=== PATIENT | male | born 1990 | race African-American/Black ===

== ENCOUNTER 2017-01-04 07:03 | Emergency (ER) | payer SELFPAY ==
[~2017-01-04] VITALS: Ht 182.9 cm; Wt 90.7 kg
[~2017-01-04 07:03] MED LIST: Albuterol ud Inhalation ONE; PredniSONE 20mg tab ONE
[2017-01-04] MEDS ORDERED: Albuterol ud Inhalation ONE (07:04)
[2017-01-04] MEDS: Ipratropium 0.02% Inh Soln 2.5ml UD HHN SCH ×3 (07:23→07:30)
[2017-01-04] MEDS: Albuterol ud Inhalation HHN SCH ×3 (07:23→07:30)
[2017-01-04] MEDS ORDERED: PredniSONE 20mg tab ORAL ONE (07:30)
--- NOTE | 2017-01-04 07:35 | Emergency Room Report ---
History of Present Illness General Chief Complaint: Asthma Source: Patient Present Illness HPI 26YOM with asthma walk-in with 2-3 days progressive SOB, chest tightness. Was recently DCed from outside hospital ED with Rx but unable to fill Rx d/t insurance issues. Denies previous intubation/BIPAP/admission. Uses albuterol and Dulera for asthma meds. Denies other meds, fever/chills, recent URI meds. Allergies: Coded Allergies: No Known Allergies (Unverified , 01/04/17) Patient History Past Medical History: asthma Past Surgical History: none Pertinent Family History: none Social History: Denies: alcohol use, drug use, smoking Immunizations: UTD Reviewed Nursing Documentation: PMH: Agreed, PSxH: Agreed Nursing Documentation-PMH Past Medical History: No History, Except For Hx Asthma: Yes Review of Systems All Other Systems: negative except mentioned in HPI Physical Exam Vital Signs Date Time Temp Pulse Resp B/P Pulse Ox O2 Delivery O2 Flow Rate FiO2 01/04/17 07:04 89 21 Nasal Cannula 2.0 01/04/17 07:05 97.5 88 Sp02 EP Interpretation: reviewed, abnormal General Appearance: normal inspection, well appearing, alert, GCS 15, non-toxic , moderate distress Head: normocephalic, atraumatic Eyes: bilateral eye EOMI, bilateral eye PERRL ENT: normal ENT inspection, hearing grossly normal, normal voice Neck: normal inspection, full range of motion, supple, no bony tend Respiratory: normal inspection, decreased breath sounds, accessory muscle use, wheezing Cardiovascular #1: regular rate, rhythm, no edema, tachycardia Gastrointestinal: normal inspection, normal bowel sounds, non tender, soft, no guarding, no hernia Genitourinary: no CVA tenderness Musculoskeletal: normal inspection, back normal, normal range of motion, Lydia' s Sign negative Neurologic: normal inspection, alert, oriented x3, responsive, tune up mechanic III-XII nml as tested, motor strength/tone normal, speech normal Psychiatric: normal inspection, judgement/insight normal, mood/affect normal Skin: normal inspection, normal color, no rash Medical Decision Making Diagnostic Impression: Primary Impression: Asthma Qualified Codes: J45.21 - Mild intermittent asthma with (acute) exacerbation ER Course 26YOM with mild asthma exacerbation VS initially concerning for hypoxia, tachycardia Access muscle use Improved with duonebs X3 and prednsione Feels much better Lungs CTAB on serial exam Patient states "medical suspended", cant fill Rx for meds Was given PPI to take with him on DC from ER Also Rx prednisone, dulera PMD followup EKG Diagnostic Results Rate: normal Rhythm: NSR ST Segments: no acute changes Rhythm Strip Diag. Results EP Interpretation: yes Rate: 83 Rhythm: NSR, no PVC's, no ectopy Chest X-Ray Diagnostic Results EP Interpretation: Yes Findings: no consolidation, no effusion, no pneumothorax, no acute cardiopulmonary disease Number of Views: 1 Last Vital Signs Date Time Temp Pulse Resp B/P Pulse Ox O2 Delivery O2 Flow Rate FiO2 01/04/17 07:24 89 21 Nasal Cannula 2.0 01/04/17 07:21 97 01/04/17 07:05 97.5 Status: improved Disposition: HOME, SELF-CARE Scripts Prednisone (Prednisone) 20 Mg Tablet 40 MG PO DAILY for 3 Days, #3 TAB Prov: JOANIE ROWLEY M.D. 01/04/17 Mometasone/Formoterol (DULERA 200 MCG/5 MCG INHALER) 13 Gm Hfa.aer.ad 13 GM IH BID for 30 Days, #1 UNIT 1 Refill Prov: JOANIE ROWLEY M.D. 01/04/17 Albuterol Sulfate (VENTOLIN HFA) 18 Gm Hfa.aer.ad 2 PUFFS INH EVERY 6 HOURS, #18 GM 1 Refill Prov: JOANIE ROWLEY M.D. 01/04/17 JOANIE ROWLEY M.D. Jan 04, 2017 07:35
[2017-01-04 07:37] LABS: EOSINOPHILS % (AUTO) 0.2 % (0.0-3.0); LYMPHOCYTES % (AUTO) 20.9 % (20.0-45.0); MEAN CORPUSCULAR HEMOGLOBIN 30.3 PG (27.0-31.0); MEAN CORPUSCULAR VOLUME 89 FL (80-99); MEAN PLATELET VOLUME 6.2 FL (6.5-10.1); MONOCYTES % (AUTO) 2.2 % (1.0-10.0); NEUTROPHILS % (AUTO) 75.8 % (45.0-75.0); PLATELET COUNT 331 K/UL (150-450); WHITE BLOOD COUNT 6.1 K/UL (4.8-10.8)
[2017-01-04 07:44] LABS: ALANINE AMINOTRANSFERASE 35 U/L (3-41); ALBUMIN/GLOBULIN RATIO 1.4 (1.0-2.7); ANION GAP 14 (5-15); ASPARTATE AMINO TRANSFERASE 45 U/L (5-40); CALCIUM 9.8 mg/dL (8.6-10.2); CARBON DIOXIDE 28 mEQ/L (20-30); CHLORIDE 100 mEQ/L (98-107); CREATININE 1.2 mg/dL (0.7-1.2); GLOMERULAR FILTRATION RATE > 60 mL/min (>60); HEMOLYSIS 3; POTASSIUM 4.9 mEQ/L (3.4-4.9); SODIUM 142 mEQ/L (135-145); TOTAL PROTEIN 8.7 g/dL (6.6-8.7); TROPONIN I < 0.30 ng/mL (<=0.30)
[2017-01-04 07:54] LABS: CKMB 11.2 ng/mL (< 6.7)
[2017-01-04 08:18] VITALS: BP 130/55
[2017-01-04] MEDS ORDERED: PREDNISONE20 M1 PO (08:35)
[2017-01-04] MEDS ORDERED: VENTOLIN HFA18 GM INH (08:35)
[2017-01-04] MEDS ORDERED: DULERA 200 MCG/13 GM IH (08:35)
[2017-01-04 08:45] VITALS: BP_SYST 130; BP_SYST 136; BP_DIAS 55; BP_DIAS 81
[2017-01-04] MEDS ORDERED: Albuterol 90mcg Inhaler 8gm INH PRN (08:45)
--- NOTE | 2017-01-04 11:00 | Diagnostic Imaging Report ---
Indication: SOB Technique: One view of the chest Comparison: none Findings: Lungs and pleural spaces are clear. Heart size is normal. Impression: No acute process
--- NOTE | 2017-01-05 14:23 | Cardiology Report ---
APPROVED REPORT EKG Measurement Heart [id number] Normal sinus rhythm with sinus arrhythmia Rightward axis Borderline ECG
== END 2017-01-04 08:45 | disposition home or self-care (01) ==
LOC: EMR 07:34
DX: J45.901 Unspecified asthma with (acute) exacerbation (principal)
CPT/HCPCS: 36415; 71010; 80053; 82550; 82553; 84484; 85025; 93005; 94640; 94664; 99284

== ENCOUNTER 2017-01-12 09:36 | Emergency (ER) | payer SELFPAY ==
[~2017-01-12] VITALS: Ht 180.3 cm; Wt 90.7 kg
[~2017-01-12 09:36] MED LIST changes: -Albuterol ud Inhalation ONE; +DULERA 200 MCG/13 GM IH; +PREDNISONE20 M1 PO; -PredniSONE 20mg tab ONE; +VENTOLIN HFA18 GM INH
--- NOTE | 2017-01-12 09:54 | Emergency Room Report ---
History of Present Illness General Chief Complaint: Asthma Source: Patient Present Illness HPI Patient presents with complaints of asthma exacerbation Patient provides significant input That he has been unable to fill medications He's having problems with his insurance Symptoms have worsened over the past several days after his presentation to the ER here Otherwise denies any fevers denies any chest pain Denies any back or flank pain He does feel short of breath with his asthma flare Allergies: Coded Allergies: No Known Allergies (Unverified , 01/04/17) Patient History Past Medical History: see triage record Pertinent Family History: none Reviewed Nursing Documentation: PMH: Agreed, PSxH: Agreed Nursing Documentation-PMH Past Medical History: No History, Except For Hx Asthma: Yes Review of Systems All Other Systems: negative except mentioned in HPI Physical Exam Vital Signs Date Time Temp Pulse Resp B/P Pulse Ox O2 Delivery O2 Flow Rate FiO2 01/12/17 09:47 99.1 112 20 124/71 92 Room Air Sp02 EP Interpretation: reviewed, normal General Appearance: well appearing, no apparent distress Head: normocephalic, atraumatic Eyes: bilateral eye EOMI, bilateral eye PERRL ENT: hearing grossly normal, normal pharynx, TMs + canals normal, uvula midline Neck: full range of motion, supple, no meningismus, no bony tend Respiratory: no rhonchi, no respiratory distress, no retraction, no accessory muscle use, wheezing - Bilaterally Cardiovascular #1: normal peripheral pulses, regular rate, rhythm, no edema, no gallop, no JVD, no murmur Gastrointestinal: normal bowel sounds, non tender, soft, no mass, no organomegaly, non-distended, no guarding, no hernia, no pulsatile mass, no rebound Musculoskeletal: normal inspection Neurologic: oriented x3, responsive, lead level designer III-XII nml as tested, motor strength/ tone normal, sensory intact Psychiatric: mood/affect normal Skin: normal color, no rash, warm/dry, palpation normal Lymphatic: normal inspection, no adenopathy Medical Decision Making Diagnostic Impression: Primary Impression: Asthma attack ER Course Patient has significantly better with acute intervention Multiple differentials including pneumonia, and reactive airway disease are considered Patient did have recent imaging study therefore that was not obtained today At the time of disposition patient has increased concerns regarding medication prescription ability to be filled Unfortunately we do not have albuterol inhalers to go home with at this facility Patient has had multiple days and ability to followup appropriately with primary physician in clinic he was also provided with referrals Unfortunately the patient was not happy regarding this, and I did try to explain that we have limited resources Last Vital Signs Date Time Temp Pulse Resp B/P Pulse Ox O2 Delivery O2 Flow Rate FiO2 01/12/17 09:47 99.1 112 20 124/71 92 Room Air Status: improved Disposition: HOME, SELF-CARE Condition: Improved Scripts Mometasone/Formoterol (DULERA 200 MCG/5 MCG INHALER) 13 Gm Hfa.aer.ad 13 GM IH BID for 30 Days, MCG Prov: ALYSON PUENTES D.O. 01/12/17 Albuterol Sulfate* (ALBUTEROL SULFATE MDI*) 8.5 Gm Hfa.aer.ad 2 PUFF INH Q6H, #1 EA 0 Refills Prov: ALYSON PUENTES D.O. 01/12/17 Additional Instructions: Patient is provided with the discharge instructions notified to follow up with primary doctor in the next 2-3 days otherwise return to the er with any worsening symptoms. Please note that this report is being documented using [employer] technology. This can lead to erroneous entry secondary to incorrect interpretation by the dictating instrument. ALYOSN PUENTES D.O. January 12, 2017 09:53
[2017-01-12] MEDS ORDERED: Ipratropium 0.02% Inh Soln 2.5ml UD HHN ONE (10:00)
[2017-01-12] MEDS ORDERED: Albuterol ud Inhalation HHN ONE (10:00)
[2017-01-12] MEDS ORDERED: PredniSONE 20mg tab ORAL ONE (10:00)
[2017-01-12] MEDS ORDERED: ALBUTEROL SULF8.5 GM INH (10:53)
[2017-01-12] MEDS ORDERED: DULERA 200 MCG/13 GM IH (10:53)
[2017-01-12 10:58] VITALS: BP 136/78
== END 2017-01-12 11:02 | disposition home or self-care (01) ==
LOC: EMR 10:03
DX: J45.901 Unspecified asthma with (acute) exacerbation (principal)
CPT/HCPCS: 94640; 94664; 99284

== ENCOUNTER 2017-02-02 04:15 | Emergency (ER) | payer SELFPAY ==
[~2017-02-02] VITALS: Ht 182.9 cm; Wt 90.7 kg
[~2017-02-02 04:15] MED LIST changes: +ALBUTEROL SULF8.5 GM INH
[2017-02-02 04:25] VITALS: BP 131/71
[2017-02-02] MEDS ORDERED: Ipratropium 0.02% Inh Soln 2.5ml UD HHN ONE (04:30)
[2017-02-02] MEDS ORDERED: Albuterol ud Inhalation HHN ONE (04:30)
--- NOTE | 2017-02-02 04:32 | Emergency Room Report ---
History of Present Illness General Chief Complaint: Asthma Source: Patient Present Illness HPI The patient presents with one and a half days of wheezing and cough. He has a history of asthma. He's been out of his inhaler. There's a difficulty he is having with finding his Medi-Benji to be valid. Denies any fevers, productive phlegm, vomiting, diarrhea. The patient had a sore throat at the beginning of this but is now doing better. He denies any chest pain. This is not his worst attack. The patient's been treated with prednisone in the past. Denies smoking to me but the nurses recorded he told her that he does smoke. Allergies: Coded Allergies: No Known Allergies (Unverified , 01/04/17) Patient History Past Medical History: see triage record Social History: Reports: smoking Social History Narrative Works and also is a student. Reviewed Nursing Documentation: PMH: Agreed, PSxH: Agreed Nursing Documentation-PMH Hx Asthma: Yes Review of Systems All Other Systems: negative except mentioned in HPI Physical Exam Vital Signs Date Time Temp Pulse Resp B/P Pulse Ox O2 Delivery O2 Flow Rate FiO2 02/02/17 04:18 99.1 86 16 120/68 97 Room Air Sp02 EP Interpretation: reviewed, normal General Appearance: well appearing, no apparent distress, GCS 15 Head: normocephalic Eyes: bilateral eye PERRL, bilateral eye normal inspection ENT: normal pharynx, moist mucus membranes Neck: supple Respiratory: wheezing, expiration Cardiovascular #1: regular rate, rhythm Cardiovascular #2: 2+ radial (R) Gastrointestinal: normal inspection, normal bowel sounds, non tender, no mass, non-distended Musculoskeletal: back normal, gait/station normal, normal range of motion Neurologic: alert, oriented x3 Skin: normal inspection, warm/dry Medical Decision Making Diagnostic Impression: Primary Impression: Asthma attack ER Course Patient presents with exacerbation of asthma. There is no fever or productive phlegm. He will be treated with albuterol and Atrovent. In addition he'll be given Decadron. Differential includes asthma, bronchitis, pneumonia. The latter is excluded by physical exam and symptom. Lungs are clear. Patient will get information about fixing his Medi-Benji. The patient is stable for outpatient observation and treatment. Last Vital Signs Date Time Temp Pulse Resp B/P Pulse Ox O2 Delivery O2 Flow Rate FiO2 02/02/17 05:50 98.4 80 16 128/72 100 Room Air 02/02/17 05:50 21 Status: improved Disposition: HOME, SELF-CARE Condition: Improved Scripts Albuterol Sulfate* (ALBUTEROL SULFATE MDI*) 8.5 Gm Hfa.aer.ad 2 PUFF INH Q6H, #1 EA 0 Refills Prov: Manohar Warren M.D. 02/02/17 Beclomethasone Dipropionate (Qvar) 8.7 Gm Aer.w.adap 2 PUFFS IH BID, #1 GM Prov: Manohar Warren M.D. 02/02/17 Manohar Warren M.D. February 02, 2017 04:32
[2017-02-02] MEDS ORDERED: Albuterol 90mcg Inhaler 8gm INH STA (04:37)
[2017-02-02] MEDS ORDERED: QVAR7.3 G2 IH (05:32)
[2017-02-02] MEDS ORDERED: ALBUTEROL SULF8.5 GM INH (05:32)
[2017-02-02 05:50] VITALS: BP 128/72
== END 2017-02-02 05:50 | disposition home or self-care (01) ==
LOC: EMR 04:48
DX: J45.901 Unspecified asthma with (acute) exacerbation (principal); F17.200 Nicotine dependence, unspecified, uncomplicated
CPT/HCPCS: 94640; 94664; 99284; J8540

== ENCOUNTER 2020-06-06 08:35 | Emergency (ER) | payer OTHER ==
[~2020-06-06] VITALS: Ht 175.3 cm; Wt 77.1 kg
[~2020-06-06 08:35] MED LIST changes: +QVAR7.3 G2 IH
--- NOTE | 2020-06-06 08:45 | NUR ---
ED Nurse Note: Pt ambulated to ED d/t difficulty of breathing, satting around 97% on RA; breathing noted with wheezes and usage of accessory muscle. per pt, he has hx of asthma and anxiety; last time he took albuterol and valium was couple of days ago. Pt is AAOx4, calm and cooperative; afebrile on triage; denies any flu-like symptoms.
[2020-06-06 08:47] VITALS: BP 126/80
[2020-06-06] MEDS ORDERED: Albuterol 90mcg Inhaler 8gm INH PRN (09:00)
--- NOTE | 2020-06-06 09:01 | Emergency Room Report ---
History of Present Illness General Chief Complaint: Asthma Source: Patient Present Illness HPI Patient presents with dyspnea. He has a history of asthma. He was last treated 2 days ago at [facility]. He says they kicked him out. He is complaining about pain in his lower back. He states he vomited 2 days ago. He is eating voraciously at the moment. He admits to doing THC and also methamphetamine. He is complaining about anxiety. He is demanding Valium at this time. He also wants Tylenol with codeine. He denies fevers or chills. He states his been tested for COVID-19 recently. He refused to get nasally tested for COVID-19 at this time. He denied pain to the triage nurse however is complaining about severe back pain to me. He has been on prednisone before. This is not his worst attack. He rates the pain in his back 6/10 at this time. It is aching. It does not radiate. No sore throat, chest pain, palpitations, nausea, diarrhea, dysuria, abdominal pain, rashes, visual changes, dizziness, headache. 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 - 04/27/20 COVID-19 Screening: Negative COVID-19 COVID-19 Testing Source: oral Patient History Past Medical History: see triage record Social History: Reports: smoking, drug use - THC and meth Social History Narrative He lives at home address Reviewed Nursing Documentation: PMH: Agreed; PSxH: Agreed Nursing Documentation-PM Past Medical History: No History, Except For Hx Asthma: Yes History Of Psychiatric Problem: Yes - anxiety Review of Systems All Other Systems: negative except mentioned in HPI Physical Exam Vital Signs Date Time Temp Pulse Resp B/P (MAP) Pulse Ox O2 Delivery O2 Flow Rate FiO2 06/06/20 08:36 97.0 96 15 126/80 (95) 97 Sp02 EP Interpretation: reviewed, normal General Appearance: no apparent distress, GCS 15, other - Eating voraciously Head: normocephalic Eyes: bilateral eye PERRL, bilateral eye EOMI, bilateral eye Scleral Injection ENT: moist mucus membranes Neck: supple Respiratory: no respiratory distress, wheezing, expiration Cardiovascular #1: regular rate, rhythm Cardiovascular #2: 2+ radial (R) Gastrointestinal: normal inspection, normal bowel sounds, non tender, no mass, non-distended Musculoskeletal: normal range of motion, gait/station normal, tender - Lumbar area but range of motion is full Neurologic: alert, oriented x3, grossly normal Psychiatric: mood/affect normal - Manipulative in asking for codeine and Valium Skin: no rash, warm/dry Medical Decision Making Homeless Attestation I, The treating physician Dr. Warren, have assessed and agree s that patient is medically stable for discharge to an outpatient disposition. This documentation may not be necessary as the patient list a home. Diagnostic Impression: Primary Impression: Asthma Qualified Codes: J45.41 - Moderate persistent asthma with (acute) exacerbation Additional Impressions: Back pain Qualified Codes: M54.5 - Low back pain; G89.29 - Other chronic pain Drug-seeking behavior ER Course Patient presents with dyspnea, wheezing and back pain. Differential includes asthma exacerbation, bronchitis, pneumonia amongst others. The patient is clear he is not been compliant with medications as he does not have them. In addition is complaining about back pain which appears to be chronic. He is demanding Valium and Tylenol with codeine. Discussed the need for COVID-19 testing which he refused. Discussed the alternative of IM epinephrine and albuterol by metered-dose inhaler along with prednisone. In addition his back pain will be treated with Tylenol. Based on vital signs and exam pneumonia is excluded. Patient refused IM epinephrine. Patient sleeping after treatment. Lungs without respiratory distress and no audible wheezing. Discussed treatment plan with patient. Patient improved. Patient stable for outpatient observation and treatment. Last Vital Signs Date Time Temp Pulse Resp B/P (MAP) Pulse Ox O2 Delivery O2 Flow Rate FiO2 06/06/20 10:27 97.0 71 16 130/82 98 Status: improved Disposition: HOME, SELF-CARE Condition: Improved Scripts Acetaminophen (Tylenol) 325 Mg Tablet 650 MG ORAL Q6H PRN for Prn Pain/Headache/Temp > 101, #30 TAB 0 Refills Prov: Manohar Warren MD 06/06/20 Albuterol Sulfate* (Albuterol Sulfate Hfa*) 8.5 Gm Hfa.aer.ad 2 PUFF INH Q6H, #1 INH 1 Refill Prov: Manohar Warren MD 06/06/20 Prednisone* (PREDNISONE*) 20 Mg Tablet 40 MG ORAL DAILY, #10 TAB Prov: Manohar Warren MD 06/06/20 Manohar Warren MD Jun 06, 2020 09:01
[2020-06-06] MEDS ORDERED: Acetaminophen 500mg (ES) tab ORAL ONE ×2 (09:02→09:15)
[2020-06-06] MEDS: EPINEPHrine 1mg/1ml Amp IM ONE ×2 (09:05→09:16)
--- NOTE | 2020-06-06 09:15 | NUR ---
ED Nurse Note: pt refused epi shot; notified ERMD. Returned med to pyxis.
[2020-06-06] MEDS ORDERED: ALBUTEROL SULF8.5 G1 INH (10:19)
[2020-06-06] MEDS ORDERED: PREDNISONE20 MG ORAL (10:19)
[2020-06-06] MEDS ORDERED: TYLENOL325 MG ORAL (10:19)
[2020-06-06 10:27] VITALS: BP 130/82
--- NOTE | 2020-06-06 10:27 | NUR ---
ER DISCHARGE NOTE: Patient is cleared to be discharged per ERMD, pt is aox4, on room air, with stable vital signs. pt was given dc and prescription instructions, pt was able to verbalize understanding, pt id band remove. pt is able to ambulate with steady gait. pt took all belongings.
== END 2020-06-06 10:35 | disposition home or self-care (01) ==
LOC: EMR 09:00
DX: J45.41 Moderate persistent asthma with (acute) exacerbation (principal); M54.5 Low back pain; G89.29 Other chronic pain; Z76.5 Malingerer [conscious simulation]; F41.9 Anxiety disorder, unspecified; F17.200 Nicotine dependence, unspecified, uncomplicated
CPT/HCPCS: J7512; Z7502; 99283